=== PATIENT | female | born 1980 | race Asian ===

== ENCOUNTER 2021-07-10 13:32 | Observation (INO) | payer OTHER ==
[~2021-07-10] VITALS: Ht 154.9 cm; Wt 81.6 kg
== END 2021-07-10 14:45 | disposition home or self-care (01) ==
LOC: SPU 13:32 → UNDOADMOB 13:32
PROVIDERS: ADMIT Specialist; ATTEND Specialist
DX: O46.93 Antepartum hemorrhage, unspecified, third trimester (principal); Z3A.37 37 weeks gestation of pregnancy
CPT/HCPCS: 81002; G0378; G0379

== ENCOUNTER 2021-07-14 06:03 | Inpatient (IN) | payer OTHER, SELFPAY ==
[2021-07-13 12:16] LABS: BASOPHILS # (AUTO) 0.1 K/uL (0.0-0.2); BASOPHILS % (AUTO) 0.7 % (0.0-2.0); EOSINOPHILS # (AUTO) 0.1 K/uL (0.0-0.4); EOSINOPHILS % (AUTO) 1.8 % (0.0-4.0); LYMPHOCYTES # (AUTO) 2.2 K/uL (1.0-5.5); LYMPHOCYTES % (AUTO) 26.8 % (20.5-51.5); MEAN CORPUSCULAR HEMOGLOBIN 32 pg (27-31); MEAN CORPUSCULAR HGB CONC 34 % (32-36); MEAN CORPUSCULAR VOLUME 95 fL (79.0-98.0); MONOCYTES # (AUTO) 0.4 K/uL (0.0-1.0); MONOCYTES % (AUTO) 5.3 % (1.7-9.3); NEUTROPHILS # (AUTO) 5.4 K/uL (1.8-7.7); NEUTROPHILS % (AUTO) 65.4 % (40.0-70.0); PLATELET COUNT (AUTO) 275 K/uL (130-430); RED CELL DISTRIBUTION WIDTH 13.5 % (9.0-15.0); WHITE BLOOD COUNT (AUTO) 8.2 K/uL (4.8-10.8)
[2021-07-13 12:47] LABS: BILIRUBIN,URINE NEGATIVE (NEGATIVE); BLOOD, URINE 1+ (NEGATIVE); CLARITY/URINE SL CLOUDY (CLEAR); COLOR,URINE YELLOW (YELLOW); GLUCOSE,URINE NEGATIVE (NEGATIVE); KETONES,URINE NEGATIVE (NEGATIVE); LEUKOCYTE ESTERASE ,URINE 3+ (NEGATIVE); NITRITE, URINE NEGATIVE (NEGATIVE); PROTEIN URINE NEGATIVE (NEGATIVE); UROBILINOGEN,URINE 0.2 (0.2-1.0)
[2021-07-13 13:23] LABS: BACTERIA,URINE MODERATE /HPF (None Seen)
[~2021-07-14] VITALS: Ht 154.9 cm; Wt 81.6 kg
[2021-07-14] MEDS ORDERED: CEFAZOLIN 2 GM IVPB PREMIX 50 ML IV ONE (06:15)
[2021-07-14] MEDS ORDERED: LR 1,000 ML IV SCH ×3 (06:15→10:30)
[2021-07-14] MEDS ORDERED: OXYTOCIN 10 UNIT/ML VIAL ONE (08:55)
[2021-07-14] MEDS ORDERED: NS IRRIG SOLN 1000 ML IR ONE (08:55)
[2021-07-14] MEDS ORDERED: MIDAZOLAM HCL 2 MG/2 ML VIAL (VERSED) ONE (08:55)
[2021-07-14] MEDS ORDERED: NS 1000 ML IV.SOLN IV ONE (08:55)
[2021-07-14] MEDS ORDERED: MORPHINE SULFATE 10MG/10ML PF AMP ONE (08:55)
[2021-07-14] MEDS ORDERED: METOCLOPRAMIDE HCL 10 MG/2 ML VIAL ONE (08:55)
[2021-07-14 10:08] VITALS: BP_SYST 116
[2021-07-14] MEDS ORDERED: KETOROLAC TROMETHAMINE 60 MG/2 ML VIAL IM PRN (10:15)
[2021-07-14] MEDS ORDERED: MEPERIDINE HCL/PF 25 MG/ML DISP.SYRIN IVP PRN (10:15)
[2021-07-14] MEDS ORDERED: KETOROLAC TROMETHAMINE 30 MG VIAL IVP PRN (10:15)
[2021-07-14] MEDS ORDERED: NALOXONE HCL 0.4 MG/ML AMP (NARCAN) IVP PRN ×3 (10:15→10:30)
[2021-07-14] MEDS ORDERED: METOCLOPRAMIDE HCL 10 MG/2 ML VIAL IVP PRN (10:15)
[2021-07-14] MEDS ORDERED: MORPHINE SULFATE 10MG/10ML PF AMP SP SCH (10:15)
[2021-07-14] MEDS ORDERED: HYDROmorphone 1 MG/ML INJ. CARTRIDGE IVP PRN (10:15)
[2021-07-14] MEDS ORDERED: ONDANSETRON HCL 4 MG/2 ML VIAL IVP PRN ×2 (10:15)
[2021-07-14] MEDS ORDERED: BISACODYL 10 MG/SUPPOSITORY RC PRN (10:30)
[2021-07-14] MEDS ORDERED: TEMAZEPAM 15 MG CAPSULE PO PRN (10:30)
[2021-07-14] MEDS ORDERED: DIPH-TET-PERTUS Vaccine 0.5 ML VIAL (ADACEL) I.M. PRN (10:30)
[2021-07-14] MEDS ORDERED: MEASLES,MUMPS&RUBELLA VACC/PF 12500 UNIT/0.5 ML VIAL SUBQ PRN (10:30)
[2021-07-14] MEDS ORDERED: RHO(D) IMMUNE GLOBULIN/MALTOSE 1500 UNITS/1.3 ML (WINHRO) IM PRN (10:30)
[2021-07-14] MEDS ORDERED: ANUSOL 1 EA SUPP.RECT (PREPARATION H) RC PRN (10:30)
[2021-07-14] MEDS ORDERED: HYDROcodone/ACETAMIN 5-325 MG TAB (NORCO/ VICODIN) PO PRN (10:30)
[2021-07-14] MEDS ORDERED: OXYCODONE/ACETAMINOPHEN *10*mg/325 mg TABLET PO PRN (10:30)
[2021-07-14] MEDS ORDERED: LANOLIN 7 GM OINT. TP PRN (10:30)
[2021-07-14] MEDS ORDERED: OXYCODONE/ACETAMINOPHEN 5-325 TABLET PO PRN (10:30)
[2021-07-14] MEDS ORDERED: SIMETHICONE 80 MG TAB.CHEW PO PRN (10:30)
[2021-07-14] MEDS: DIPHENHYDRAMINE INJ 50 MG/ML VIAL IM PRN ×2 (13:40→21:57)
[2021-07-14] MEDS: CEFAZOLIN 1 GM IVPB PREMIX 50 ML IV SCH ×2 (16:28→21:58)
[2021-07-14] MEDS: KETOROLAC TROMETHAMINE 30 MG VIAL IVP SCH (18:10)
[2021-07-14] MEDS: OXYTOCIN/0.9 % SODIUM CHLORIDE 1,000 ML IV SCH (18:41)
[2021-07-14] MEDS ORDERED: SENNOSIDES/DOCUSATE SODIUM 1 TAB TABLET(SENOKOT-S) PO SCH (21:00)
[2021-07-14] MEDS: DOCUSATE SODIUM 100 MG CAPSULE PO SCH (21:54)
[2021-07-15] MEDS: KETOROLAC TROMETHAMINE 30 MG VIAL IVP SCH ×2 (00:11→05:54)
[2021-07-15] MEDS: OXYTOCIN/0.9 % SODIUM CHLORIDE 1,000 ML IV SCH (03:05)
[2021-07-15] MEDS: CEFAZOLIN 1 GM IVPB PREMIX 50 ML IV SCH (04:04)
[2021-07-15 07:46] LABS: BASOPHILS % (AUTO) 0.2 % (0.0-2.0); EOSINOPHILS % (AUTO) 0.4 % (0.0-4.0); HEMATOCRIT 28.4 % (36-48); HEMOGLOBIN 9.5 g/dL (12.0-16.0); LYMPHOCYTES # (AUTO) 1.6 K/uL (1.0-5.5); LYMPHOCYTES % (AUTO) 16.2 % (20.5-51.5); MEAN CORPUSCULAR HEMOGLOBIN 32 pg (27-31); MEAN CORPUSCULAR HGB CONC 33 % (32-36); MEAN CORPUSCULAR VOLUME 96 fL (79.0-98.0); MONOCYTES # (AUTO) 0.5 K/uL (0.0-1.0); MONOCYTES % (AUTO) 4.7 % (1.7-9.3); NEUTROPHILS # (AUTO) 7.6 K/uL (1.8-7.7); NEUTROPHILS % (AUTO) 78.5 % (40.0-70.0); PLATELET COUNT (AUTO) 219 K/uL (130-430); RED BLOOD CELL COUNT(AUTO) 2.96 MIL/uL (4.2-6.2); RED CELL DISTRIBUTION WIDTH 13.5 % (9.0-15.0); WHITE BLOOD COUNT (AUTO) 9.6 K/uL (4.8-10.8)
[2021-07-15] MEDS: DOCUSATE SODIUM 100 MG CAPSULE PO SCH (09:17)
[2021-07-15] MEDS: IBUPROFEN 600 MG TABLET PO SCH ×2 (12:03→18:08)
[2021-07-15] MEDS: guaiFENesin/DEXTROMETHORPHAN 10 ML UDC PO PRN ×2 (14:30→18:08)
[2021-07-16] MEDS: IBUPROFEN 600 MG TABLET PO SCH ×3 (00:09→11:39)
[2021-07-16] MEDS: DOCUSATE SODIUM 100 MG CAPSULE PO SCH (10:16)
[2021-07-16] MEDS: guaiFENesin/DEXTROMETHORPHAN 10 ML UDC PO PRN (10:17)
[2021-07-19 22:06] LABS: FTA-Ab (T PALLIDUM) Non Reactive (Non Reactive)
== END 2021-07-16 15:00 | disposition home or self-care (01) | DRG 784 ==
LOC: SPU 06:03 → EDUNIT# 07-26 07:30
PROVIDERS: ADMIT Specialist; ATTEND Specialist
PROC: 0UB70ZZ Excision of Bilateral Fallopian Tubes, Open Approach (ICD-10-PCS; 2021-07-14)
PROC: 10D00Z1 Extraction of Products of Conception, Low, Open Approach (ICD-10-PCS; principal; 2021-07-14 08:30)
DX: O34.211 Maternal care for low transverse scar from previous cesarean delivery (principal); O41.03X0 Oligohydramnios, third trimester, not applicable or unspecified; O69.81X0 Labor and delivery complicated by cord around neck, without compression, not applicable or unspecified; Z20.822 Contact with and (suspected) exposure to COVID-19; Z30.2 Encounter for sterilization; Z37.0 Single live birth; Z3A.38 38 weeks gestation of pregnancy
CPT/HCPCS: 36415; 81000; 85025; 86592; 86780; 86886; 86900; 86901; 87086; 88302; 90715; 94760; J0690; J1200; J1885; J2274; J2590; J2765; J3465; J7030